=== PATIENT | female | born 1955 | race Caucasian/White ===

== ENCOUNTER → 2020-04-30 10:00 | Outpatient (CLI) | payer MEDICARE ==
[2012-11-14 12:51] VITALS: BMI 18.8
== END | disposition home or self-care (01) ==
LOC: D.US 10:00
PROVIDERS: ATTEND Emergency Medicine
DX: R10.11 Right upper quadrant pain (principal); R05 Cough; K58.9 Irritable bowel syndrome, unspecified; M51.36 Other intervertebral disc degeneration, lumbar region; G89.4 Chronic pain syndrome